=== PATIENT | male | born 1985 | race Caucasian/White ===

== ENCOUNTER 2017-05-22 00:06 | Emergency (ER) | payer SELFPAY ==
[~2017-05-22] VITALS: Ht 182.9 cm; Wt 72.0 kg
[2017-05-22 03:13] LABS: HEMATOCRIT 42.3 % (42.0-52.0); HEMOGLOBIN 14.8 g/dL (14.0-18.0); MEAN CORPUSCULAR HEMOGLOBIN 31.9 pg (28.0-32.0); MEAN CORPUSCULAR VOLUME 91.4 fL (80.0-94.0); PLATELET 197 x1000/uL (130-400); RED BLOOD CELL COUNT 4.63 mill/uL (4.7-6.1); RED CELL DISTRIBUTION WIDTH 13.1 % (11.6-14.6)
[2017-05-22 03:19] LABS: CHLORIDE 103 mEq/L (98-107)
[2017-05-22 04:10] VITALS: BP 120/74
== END 2017-05-22 05:03 | disposition home or self-care (01) ==
LOC: ER 00:16
DX: R55 Syncope and collapse (principal); F17.210 Nicotine dependence, cigarettes, uncomplicated
CPT/HCPCS: 36415; 71045; 80048; 85027; 93005; 99285